=== PATIENT | male | born 1990 | race Caucasian/White ===

== ENCOUNTER 2024-05-09 10:13 | Emergency (ER) | payer OTHER ==
[~2024-05-09] VITALS: Ht 182.9 cm; Wt 119.0 kg
[2024-05-09] MEDS ORDERED: SODIUM CHLORIDE 0.9% 1,000 ML IV ONE (10:45)
[2024-05-09] MEDS ORDERED: ondansetron HCL 4 MG/2 ML VIAL IV ONE (10:45)
[2024-05-09 11:11] LABS: ALBUMIN 3.2 g/dL (3.4-5.0); ALBUMIN/GLOBULIN RATIO 0.67 (1.1-2.4); ANION GAP 15.9 (7-21); BILIRUBIN, TOTAL 0.8 ng/dL (0.2-1.0); BUN/CREATININE RATIO 5.21 (6.0-28.6); CREATININE, SERUM 1.15 mg/dL (0.70-1.30); POTASSIUM 3.9 mmol/L (3.5-5.1)
[2024-05-09 11:13] LABS: HEMOGLOBIN 16.4 g/dL (12.0-18.0)
[2024-05-09 11:15] LABS: BASOPHILS 0.3 % (0-2); EOSINOPHILS 2.6 % (0-6); LYMPHOCYTES 4.9 % (24-44); MCHC 32.9 g/dl (30-36); MCV 82.1 fl (81-99); MONOCYTES 11.7 % (0-12); NEUTROPHILS 80.5 % (39-80); PLATELET COUNT 449 K/uL (140-440); RBC 6.08 M/ul (4.3-5.7); RDW 13.7 (10.5-15.0)
[2024-05-09 12:56] LABS: BILIRUBIN, URINE POSITIVE (negative); BLOOD/HGB, URINE MODERATE (Negative); KETONE, URINE SMALL (Negative); LEUK ESTERASE, URINE NEGATIVE (negative); NITRITE, URINE NEGATIVE (negative); PH, URINE 5.5 (5-7)
[2024-05-09 13:14] LABS: CRYSTALS, URINE NONE SEEN (0-1+); EPITHELIAL CELLS, URINE 0 /lpf (0-1+)
[2024-05-09 13:15] LABS: BACTERIA, URINE RARE /hpf (negative); CASTS, URINE NONE SEEN \\lpf; COLLECTION TYPE, URINE CLEAN CATCH; REFLEX CULTURE, URINE No (No)
[2024-05-09] MEDS ORDERED: PREDNISONE20 MG PO ×2 (13:18→13:21)
[2024-05-09] MEDS ORDERED: PREDNISONE10 MG PO ×3 (13:19→13:26)
[2024-05-09 13:34] VITALS: BP 139/89
[2024-05-11 08:07] LABS: C. DIFF TOXIN B GENE TCDB,PCR Inhibited (())
== END 2024-05-09 13:34 | disposition home or self-care (01) ==
LOC: ED 10:13
PROVIDERS: Emergency Medicine
DX: K51.911 Ulcerative colitis, unspecified with rectal bleeding (principal); Z88.1 Allergy status to other antibiotic agents; Z79.899 Other long term (current) drug therapy
CPT/HCPCS: 36415; 74177; 80053; 81001; 83690; 85025; 87493; 99284-25; J2405; J7030; Q9967

== ENCOUNTER 2024-05-20 09:16 | Emergency (ER) | payer MEDICAID ==
[~2024-05-20] VITALS: Ht 182.9 cm; Wt 118.2 kg
[~2024-05-20 09:16] MED LIST: PREDNISONE10 MG PO; PREDNISONE20 MG PO
--- OUTSIDE RECORDS SUMMARY | 2024-05-20 09:24 | XMS ---
PreManage Notification: ANGY RAMÍREZ Security Binding C[employer] Events No recent Security Events currently on file CRITERIA MET - [facility] - 2 Visits in 30 Days CARE PROVIDERS AGUSTINA SOSA Internal Medicine Current PHONE: [phone] YARY MCDONALD Nurse Practitioner: Family Current PHONE: Unknown Soha has no Care Guidelines for this patient. Joe VISIT COUNT (12 MO.) 2 [facility] TOTAL 2 NOTE: Visits indicate total known visits. ED/UCC VISIT TRACKING (12 MO.) 05/20/2024 09:18 [facility] TYPE: Emergency COMPLAINT: - RECTAL BLEEDING 05/09/2024 10:14 [facility] [place] TYPE: Emergency COMPLAINT: - RECTAL BLEEDING DIAGNOSES: - Allergy status to other antibiotic agents - Hemorrhage of anus and rectum - Other mcc (current) drug therapy - Ulcerative colitis, unspecified with rectal bleeding INPATIENT VISIT TRACKING (12 MO.) No inpatient visits to display in this time frame [email or web address]
[2024-05-20] MEDS ORDERED: PREDNISONE10 MG PO ×2 (09:38→11:31)
[2024-05-20] MEDS ORDERED: methylPREDNISolone SOD SUCC 125 MG/2 ML VIAL IV ONE (10:00)
[2024-05-20] MEDS ORDERED: ondansetron HCL 4 MG/2 ML VIAL IV ONE (10:00)
[2024-05-20] MEDS ORDERED: HYDROmorphone HCL 1 MG/ML SYR IV PRN (10:00)
[2024-05-20] MEDS ORDERED: SODIUM CHLORIDE 0.9% 1,000 ML IV ONE (10:00)
[2024-05-20 10:01] LABS: BASOPHILS 0.4 % (0-2); EOSINOPHILS 0.8 % (0-6); HEMATOCRIT 47.8 % (35.0-50.0); HEMOGLOBIN 16.3 g/dL (12.0-18.0); MCH 27.3 (27-36); MCHC 34.1 g/dl (30-36); MONOCYTES 5.3 % (0-12); NEUTROPHILS 89.5 % (39-80); PLATELET COUNT 523 K/uL (140-440); RBC 5.98 M/ul (4.3-5.7); RDW 13.7 (10.5-15.0)
[2024-05-20 10:15] LABS: ALBUMIN 2.1 g/dL (3.4-5.0); ALBUMIN/GLOBULIN RATIO 0.45 (1.1-2.4); ANION GAP 11.3 (7-21); BILIRUBIN, TOTAL 0.4 ng/dL (0.2-1.0); CALCIUM 8.1 mg/dL (8.5-10.1); CREATININE, SERUM 1.16 mg/dL (0.70-1.30); POTASSIUM 3.3 mmol/L (3.5-5.1); PROTEIN, TOTAL 6.8 g/dL (6.4-8.2)
[2024-05-20] MEDS ORDERED: LIDOCAINE 5% OINTMENT TUBE TOP ONE (10:45)
[2024-05-20] MEDS ORDERED: HYDROCODON-ACE1 EA11 PO (11:31)
[2024-05-20] MEDS ORDERED: PROMETHAZINE HC25 M1 PO (11:31)
[2024-05-20] MEDS ORDERED: HEMORRHOIDAL RE30 GM TOP (11:31)
[2024-05-20] MEDS ORDERED: ONDANSETRON ODT8 MG PO (11:31)
[2024-05-20 11:48] VITALS: BP 116/69
== END 2024-05-20 11:49 | disposition home or self-care (01) ==
LOC: ED 09:16
PROVIDERS: Emergency Medicine
DX: K60.2 Anal fissure, unspecified (principal); K51.90 Ulcerative colitis, unspecified, without complications; Z88.1 Allergy status to other antibiotic agents; Z88.8 Allergy status to other drugs, medicaments and biological substances
CPT/HCPCS: 36415; 74177; 80053; 83690; 85025; J1170; J2405; J2919; J7030; Q9967

== ENCOUNTER 2024-08-13 18:53 | Emergency (ER) | payer OTHER ==
[~2024-08-13] VITALS: Ht 182.9 cm; Wt 124.7 kg
[~2024-08-13 18:53] MED LIST changes: +HEMORRHOIDAL RE30 GM TOP; +HYDROCODON-ACE1 EA11 PO; +ONDANSETRON ODT8 MG PO; +PROMETHAZINE HC25 M1 PO
[2024-08-13] MEDS ORDERED: MORPHINE SULFATE 10 MG/ML VIAL IM ONE (19:45)
[2024-08-13] MEDS ORDERED: TETRACAINE HCL 0.5% 4 ML BTL OS ONE (20:00)
[2024-08-13] MEDS ORDERED: SUMAtriptan succinate 6 MG/0.5 ML VIAL SUB-Q ONE (20:30)
[2024-08-13] MEDS ORDERED: NEOMYCIN/POLYMYXIN/DEXAMETH OPTH SUSPENSION BOTTLE OS ONE (20:30)
[2024-08-13] MEDS ORDERED: VERAPAMIL HCL40 MG PO (20:33)
[2024-08-13] MEDS ORDERED: PREDNISONE20 MG PO (20:33)
[2024-08-13 21:00] VITALS: BP 126/97
== END 2024-08-13 21:00 | disposition home or self-care (01) ==
LOC: ED 18:53
DX: G44.009 Cluster headache syndrome, unspecified, not intractable (principal); Z88.1 Allergy status to other antibiotic agents; Z79.899 Other long term (current) drug therapy
CPT/HCPCS: 99283; J3030